=== PATIENT | female | born 1985 | race Caucasian/White ===

== ENCOUNTER 2018-02-08 10:02 | Inpatient (IN) | payer MEDICAID, OTHER, SELFPAY ==
[2018-02-08] MEDS ORDERED: Promethazine HCl 25 MG/ML VIAL IM PRN ×2 (10:45→13:50)
[2018-02-08] MEDS ORDERED: Bicitra 30 ML UDCUP PO SCH (10:45)
[2018-02-08] MEDS ORDERED: Ondansetron HCl/PF 4 MG/2 ML Vial IVP PRN ×3 (10:45→13:50)
[2018-02-08] MEDS ORDERED: Gentamicin 80 MG/2 ML VIAL IVPB SCH (10:45)
[2018-02-08] MEDS: Lactated Ringer's 1,000 ML IV SCH ×2 (10:45→18:41)
[2018-02-08] MEDS ORDERED: Acetaminophen 500 MG TAB PO PRN (10:45)
[2018-02-08] MEDS ORDERED: Clindamycin/D5W 900 MG in Premix Bag 1 BAG IVPB SCH (10:45)
[2018-02-08 11:07] LABS: Hemoglobin 11.3 g/dL (12.0-16.0); Mean Corpuscular HGB CONC 33.4 g/dL (32.0-36.0); Mean Corpuscular Hemoglobin 29.2 pg (27.0-31.0); Mean Corpuscular Volume 87.5 fL (78.0-98.0); Mean Platelet Volume 9.3 fL (7.4-10.4); Platelet Count 165 thou/uL (130-400); RBC Distribution Width 12.5 % (11.5-14.5); Red Blood Cell (RBC) Count 3.86 mill/uL (4.20-5.40); White Blood Cell (WBC) Count 7.3 thou/uL (4.8-10.8)
[2018-02-08] MEDS ORDERED: Gentamicin Sulfate 120 MG in Premix Bag 1 BAG IVPB SCH (11:15)
--- NOTE | 2018-02-08 11:21 | PDOC.FPROB ---
Addendum entered and electronically signed by Clara Rodriguez DO 02/08/18 12:40: Correction: Patient is 38w6d by 1T US with ZAINAB 02/16/18. Original Note: FMR OB H&P: HPI - History of Present Illness Chief Complaint: brianna csection History of Present Illness: Patient is a at 39w6d by 1T US presents to L&D for scheduled delivery for repeat section. Today she reports good FM, no LOF, no VB, and no vaginal discharge. Primary Care Physician: Dr. Vj Wells FMR OB H&P: Current - Care : 5 Para: 3 Gestational age: 39w6d Due date: 02/09/18 - OB Labs Blood type: O RH: positive Antibody Screen: negative HIV: negative RPR: negative HepBsAg: negative Rubella: immune 1 hour gtt: 131 - First Trimester Ultrasound First trimester: within normal limits. - Anatomy Survey Anatomy survey: within normal limits. FMR OB H&P: History - Past Medical History PMH: none - OB History OB History: csection x3 - Surgical History Sx History: csection x3 FMR OB H&P: Medications - Current Home Medications: Medication Instructions Recorded Confirmed Type Hji150/Iron Fum/Folic 1 tablet PO DAILY 01/25/16 02/08/18 History [ Tablet] Allergies/Adverse Reactions: Allergies Allergy/AdvReac Type Severity Reaction Status Date / Time penicillin G Allergy Verified 01/25/16 06:27 FMR OB H&P: ROS - Review of Systems General: denies: fever/chills ENT: denies: nasal congestion, rhinorrhea Cardiovascular: denies: chest pain, edema Gastrointestinal: denies: abdominal pain, nausea, vomiting Genitourinary (Female): denies: vaginal discharge, vaginal pain, vaginal bleeding, contractions FMR OB H&P: Vital Signs - Maternal Vital signs: Vital Signs - First Documented Temp Pulse Resp BP 98.2 F 80 18 88/48 L 02/08/18 10:37 02/08/18 10:37 02/08/18 10:37 02/08/18 10:37 - Heart Tones Category: category 1 FMR OB H&P: Physical Exam - Physical Exam General: NAD HEENT: normocephalic and atraumatic Heart: RRR General: CTAB Abdomen: gravid, non-tender Deviation from normal: malpresentation on leopolds exam Musculoskeletal: normal gait and station, pulses present, FROM in all four extremities Psychiatric: normal mood and affect - Pelvic Exam Estimated Weight: 7 lbs FMR OB H&P: Results - Labs Lab results: Laboratory Results - last 24 hr 02/08/18 10:45 WBC 7.3 RBC 3.86 L Hgb 11.3 L Hct 33.7 L MCV 87.5 MCH 29.2 MCHC 33.4 RDW 12.5 Plt Count 165 MPV 9.3 - Imaging Imaging: Bedside u/s confirms oblique presentation with head in RUQ and OA position with anterior fundal placental location. FMR OB H&P: A/P - Problem List (1) delivery indicated due to breech presentation Current Visit: Yes Status: Acute Code(s): O32.1XX0 - MATERNAL CARE FOR BREECH PRESENTATION, UNSP Comment: 32 yo @ 38.6 wk delivered via rLTCS indicated for breech presentation. VSS Pain is contorlled. encourage ambulation and PO intake. expectant management at this time. will remove CORDELIA drain tomorrow. Fernanda d/c on Sunday. Assessment and Plan: Patient is at 39.6 by 1T US presents for repeat csection and malpresentation. sIUP: IOL reviewed and wnl. Hx Csx x3: last delivery with vaccuum extraction 2/2 scar formation. Malpresentation: on bedside u/s. Prepare for breech delivery. Admit to L&D for csx. Will give ppx abx prior to surgery. Plan for routine delivery and PP care. Discussion: Date/Time: 02/08/18 1119 This H&P was discussed with [] and [] who agree with the above documentation and plan. Attending Addendum - Attending Addendum Date/Time: 02/09/18 1050 I personally evaluated the patient and discussed the management with Dr. Rodriguez. I agree with the History, Examination, Assessment and Plan documented above with any addition or exceptions noted below. 32 y.o. at 38.6 weeks EGA by 7wk US with breech presentation for scheduled repeat US for repeat, thin lower uterine segment, history of dense intraabdominal adhesions, and malpresentation. FHT's reactive, no contractions.
[2018-02-08 11:46] LABS: Hep B Surf Ag Non-Reactive S/CO (NonReactive)
[2018-02-08 11:48] LABS: Syphilis Antibody Nonreactive (Nonreactive); Syphilis Antibody Index 0.05 S/CO (<1.00 Non-Reactive)
[2018-02-08] MEDS ORDERED: Morphine PF 1 MG/ML SYR ONE (12:03)
[2018-02-08] MEDS ORDERED: PHENYLEPHRINE-NS 100 MCG/ML 10 ML SYRINGE ONE ×3 (12:04→15:17)
[2018-02-08] MEDS ORDERED: Oxytocin 10 UNITS/ML VIAL ONE (12:04)
[2018-02-08] MEDS ORDERED: Ketorolac Tromethamine 30 MG/ML VIAL ONE ×2 (12:04→15:17)
[2018-02-08] MEDS ORDERED: Glycopyrrolate 0.2 MG/ML 5 ML SYRINGE ONE ×2 (12:04→15:17)
[2018-02-08] MEDS ORDERED: Ondansetron HCl/PF 4 MG/2 ML Vial ONE ×2 (12:04→15:17)
[2018-02-08] MEDS ORDERED: Bupivacaine 0.75% W/DEXTROSE 8.25% 2 ML AMP ONE (12:09)
[2018-02-08] MEDS ORDERED: Lidocaine 1% PF 5 ML VIAL ONE (12:09)
[2018-02-08] MEDS ORDERED: Promethazine HCl 25 MG SUPP PR PRN (13:50)
[2018-02-08] MEDS ORDERED: Naloxone HCl 0.4 mg/ml Vial IV PRN (13:50)
[2018-02-08] MEDS ORDERED: HYDROmorphone 2 MG/ML VIAL SLOW IVP PRN (13:50)
[2018-02-08] MEDS ORDERED: diphenhydrAMINE 50 MG/ML VIAL IVP PRN (13:50)
[2018-02-08] MEDS ORDERED: Naloxone HCl 0.4 mg/ml Vial IVP PRN ×2 (13:50)
[2018-02-08] MEDS ORDERED: Meperidine HCl/PF 25 MG/ML VIAL SLOW IVP PRN (13:50)
[2018-02-08] MEDS ORDERED: Eucerin (Mineral Oil/Petrolatum,White) 30 gm Jar TOP PRN (13:50)
[2018-02-08] MEDS ORDERED: Ketorolac Tromethamine 30 MG/ML VIAL IVP SCH (14:00)
[2018-02-08] MEDS ORDERED: Communication Order-Pharmacy FS SCH (14:00)
--- NOTE | 2018-02-08 15:08 | OP-2 ---
DATE OF PROCEDURE: 02/08/2018 RESIDENT SURGEON: Moreno Stoddard M.D. STORE PROTECTION SPECIALIST SURGEON: Adebayo White D.O. ATTENDING SURGEON: Vj Wells M.D. PROCEDURE: Repeat low transverse section. ANESTHESIA: Spinal. PREOPERATIVE DIAGNOSES: 1. Term intrauterine . 2. Breech presentation. 3. History of section x3 with known extensive scarring and adhesions on previous . POSTOPERATIVE DIAGNOSES: 1. Term intrauterine . 2. Breech presentation. 3. History of section x3 with known extensive scarring and adhesions on previous . INDICATIONS: Ms. Briggs is a 32-year-old G5, P3-0-1-3 at 38.6 weeks gestation who presented for repeat scheduled section due to prior section x3 and malpresentation. PROCEDURE IN DETAIL: The patient provided consent after risks, benefits and alternatives were discussed. She received clindamycin 900 mg x1 dose and gentamicin 120 mg x1 dose for preoperative antibiotics. The patient was taken into the operating room and spinal anesthesia was initiated. She was placed in the supine position with left lateral tilt and prepped and draped in the usual sterile fashion. Skin incision was made with a scalpel and was carried down sharply and bluntly to the level of the fascia, which was sharply nicked. Extensive scarring between the subcutaneous fat and fascia was noted at this time. The scar tissue was dissected through and released. The fascial incision was then extended superior laterally using Rodriguez scissors. The superior and inferior edges of the fascia were elevated with Gunjan clamps and bluntly and sharply dissected free. The rectus muscles were divided digitally and retracted manually. There was marked scarring between the rectus muscles that was inspected and found to be free of bowel or bladder and sharply dissected using Rodriguez scissors. The bladder was identified along the inferior edge and the overlying scar tissue was dissected away. The opening into the abdominal cavity was then retracted manually. Vu O retractor was placed. Lower uterine segment was identified and noted to have several adhesions along the bladder. The bladder was back filled with methylene blue to ensure no bladder injury occurred. A bladder flap was created along the lower uterus to release adhesions. During creation of bladder flap, an uterine window was identified. This was entered digitally. Hysterotomy was created through the uterine window and retracted manually in the caudal cranial fashion. Rupture of membranes revealed clear fluid. The was noted to be in the breech position and the feet were easily delivered through the hysterotomy. Gentle traction was used to deliver the to the level of the shoulders, both of which were swept in the anterior to posterior fashion. The neck was flexed and the head was easily delivered with fundal pressure. Delayed cord clamping was utilized. The cord was then cut and clamped and the infant was sent to the awaiting nursery team. The placenta was then extracted manually and the uterus was curetted with dry lap sponge. Ring forceps were used to identify the apices and the lower edge of the hysterotomy, which was then closed using an 0 Monocryl in the running locking fashion. Hysterotomy was then inspected and noted to be hemostatic. There were several small oozing vessels along the bladder flap and uterine serosa, which were controlled with Bovie cautery. A piece of Surgicel was placed within the bladder flap to further promote hemostasis. The rectus peritoneum was inspected and noted to have a few small bleeding vessels, which were cauterized with Bovie cautery. Rectus muscles were inspected and bleeding was stopped again with Bovie cautery. Fascia was closed using 0 PDS in the running nonlocking fashion. The subcutaneous layer was irrigated with sterile saline and a CORDELIA drain was placed in the subcutaneous layer and allowed to drain with gravity. Three simple interrupted 2-0 chromic sutures were used to reapproximate the subcutaneous layer and the skin was reapproximated with karin. The patient tolerated the procedure well. Counts were correct x3. The patient went to recovery in stable condition. QUANTITATIVE BLOOD LOSS: 790 mL COMPLICATIONS: None. SPECIMENS: Cord blood sent to lab for type and screen. FINDINGS: Grossly normal female infant born at 1300 hours with Apgars of 8 and 9 at 1 and 5 minutes respectively. Grossly normal placenta with 3-vessel cord noted and discarded. DRAINS: Causey catheter with blue colored urine due to methylene blue. Prior to the administration of methylene blue, there was no blood noted in the urine. Additionally, no methylene blue was found leaking into the abdominal cavity. There is also a CORDELIA drain left in the subcutaneous layer draining to gravity. [facility]
[2018-02-08] MEDS ORDERED: Misoprostol 200 MCG TAB PR PRN (16:46)
[2018-02-08] MEDS ORDERED: Methylergonovine 0.2 MG/ML VIAL IM PRN (16:46)
[2018-02-08] MEDS ORDERED: Adacel (T-DAP) 0.5 ML VIAL IM ONE (16:46)
[2018-02-08] MEDS ORDERED: Lanolin Ointment 7 GM TUBE TOP PRN (16:46)
[2018-02-08] MEDS: Ketorolac Tromethamine 30 MG/ML VIAL IVP PRN (20:50)
[2018-02-08] MEDS: Docusate Calcium (SURFAK) 240 MG CAP PO SCH (21:04)
[2018-02-09] MEDS ORDERED: HYDROcodone/Acetaminophen 5/325 mg Tablet PO PRN (02:00)
[2018-02-09] MEDS: Ketorolac Tromethamine 30 MG/ML VIAL IVP PRN (05:26)
[2018-02-09] MEDS: Lactated Ringer's 1,000 ML IV SCH (05:26)
[2018-02-09 06:06] LABS: Hemoglobin 10.1 g/dL (12.0-16.0); Mean Corpuscular HGB CONC 34.9 g/dL (32.0-36.0); Mean Corpuscular Hemoglobin 30.6 pg (27.0-31.0); Mean Corpuscular Volume 87.8 fL (78.0-98.0); Mean Platelet Volume 8.9 fL (7.4-10.4); Platelet Count 138 thou/uL (130-400); RBC Distribution Width 12.3 % (11.5-14.5); Red Blood Cell (RBC) Count 3.29 mill/uL (4.20-5.40); White Blood Cell (WBC) Count 8.3 thou/uL (4.8-10.8)
--- NOTE | 2018-02-09 07:57 | PDOC.PP ---
Post Progress Note Post Day #: 1 Subjective: Pain controlled. No concerns. asked about completing CHIP paperwork for baby. PO intake tolerated: yes Flatus: yes Ambulation: no Vital Signs (12 hours) Temp Pulse Resp BP Pulse Ox 02/09/18 04:50 97.8 F 57 L 16 02/09/18 00:25 98.2 F 62 16 93/48 L 02/08/18 20:30 98.7 F 66 17 96/46 L 97 02/08/18 20:25 98.7 F 65 17 Weight Weight 80.004 kg - Physical Examination General: NAD Cardiovascular: no m/r/g, RRR Respiratory: clear to auscultation bilaterally, non-labored breathing Abdominal: + bowel sounds, lochia, no distention, appropriately TTP Fundus firm & at: 2 cm below umbilicus Extremities: negative homans (B) Skin: CS incision dry & intact (minimal drainaged from CORDELIA) Neurological: no gross focal deficits Psychiatric: A&Ox3, normal affect Result Diagrams: 02/09/18 05:46 Additional Labs: Post Labs Blood Type O POSITIVE 02/08/18 10:45 Hep Bs Antigen Non-Reactive S/CO (NonReactive) 02/08/18 10:45 (1) delivery indicated due to breech presentation Code(s): O32.1XX0 - MATERNAL CARE FOR BREECH PRESENTATION, UNSP Status: Acute Comment: 32 yo @ 38.6 wk delivered via rLTCS indicated for breech presentation. VSS Pain is contorlled. encourage ambulation and PO intake. expectant management at this time. will remove CORDELIA drain tomorrow. Fernanda d/c on Sunday. <Moreno Stoddard - Last Filed: 02/09/18 07:54> Vital Signs (12 hours) Temp Pulse Resp BP Pulse Ox 02/09/18 09:00 97.9 F 50 L 20 99/49 L 96 02/09/18 04:50 97.8 F 57 L 16 02/09/18 00:25 98.2 F 62 16 93/48 L Weight Weight 80.004 kg Result Diagrams: 02/09/18 05:46 Additional Labs: Post Labs Blood Type O POSITIVE 02/08/18 10:45 Hep Bs Antigen Non-Reactive S/CO (NonReactive) 02/08/18 10:45 (1) delivery indicated due to breech presentation Code(s): O32.1XX0 - MATERNAL CARE FOR BREECH PRESENTATION, UNSP Status: Acute Comment: 32 yo @ 38.6 wk delivered via rLTCS indicated for breech presentation. VSS Pain is contorlled. encourage ambulation and PO intake. expectant management at this time. will remove CORDELIA drain tomorrow. Fernanda d/c on Sunday. <Vj Wells - Last Filed: 02/09/18 10:56> Attending Addendum - Attending Addendum Date/Time: 02/09/18 7247 I personally evaluated the patient and discussed the management with Dr. Stoddard. I agree with the History, Examination, Assessment and Plan documented above with any addition or exceptions noted below. Pain controlled. Vitals normal. Afeb. Incision C/D/I. Drain with minimal serosanguinous drainage. If remains minimal after ambulation, can be pulled this afternoon. <Vj Wells - Last Filed: 02/09/18 10:56>
[2018-02-09] MEDS: HYDROcodone/Acetaminophen 5/325 mg Tablet PO PRN ×3 (09:17→19:42)
[2018-02-09] MEDS: Prenatal Vitamin 1 TAB PO SCH (09:18)
[2018-02-09] MEDS: Docusate Calcium (SURFAK) 240 MG CAP PO SCH ×2 (09:18→19:42)
[2018-02-09] MEDS ORDERED: Simethicone Chewable 80 MG TAB PO PRN (19:27)
[2018-02-09] MEDS: Ibuprofen 800 MG TAB PO SCH (22:06)
[2018-02-10] MEDS: Ibuprofen 800 MG TAB PO SCH ×2 (06:22→13:42)
--- NOTE | 2018-02-10 07:30 | PDOC.PP ---
Post Progress Note Post Day #: 2 Subjective: complains of abdominal distention. No other concerns. would like to go home. PO intake tolerated: yes Flatus: yes Ambulation: yes Vital Signs (12 hours) Temp Pulse Resp BP 02/10/18 04:20 97.8 F 78 18 02/10/18 00:05 97.8 F 78 18 02/09/18 19:50 97.8 F 78 18 104/58 L Weight Weight 80.004 kg - Physical Examination General: NAD Cardiovascular: no m/r/g, RRR Respiratory: clear to auscultation bilaterally, non-labored breathing Abdominal: + bowel sounds, lochia, no distention, appropriately TTP Fundus firm & at: 2 cm above pubic symphysis Extremities: negative homans (B) Skin: CS incision dry & intact, no rash Neurological: no gross focal deficits Psychiatric: A&Ox3, normal affect Result Diagrams: 02/09/18 05:46 Additional Labs: Post Labs Blood Type O POSITIVE 02/08/18 10:45 Hep Bs Antigen Non-Reactive S/CO (NonReactive) 02/08/18 10:45 (1) delivery indicated due to breech presentation Code(s): O32.1XX0 - MATERNAL CARE FOR BREECH PRESENTATION, UNSP Status: Acute Comment: 32 yo @ 38.6 wk delivered via rLTCS indicated for breech presentation. VSS Pain is contorlled. encourage ambulation and PO intake. expectant management at this time. will remove CORDELIA drain tomorrow. Dispo pending needs for baby.
[2018-02-10] MEDS: Docusate Calcium (SURFAK) 240 MG CAP PO SCH (09:19)
[2018-02-10] MEDS: Prenatal Vitamin 1 TAB PO SCH (09:19)
[2018-02-10] MEDS ORDERED: Bisacodyl 5 MG TAB PO SCH (11:00)
[2018-02-10] MEDS: HYDROcodone/Acetaminophen 5/325 mg Tablet PO PRN (11:32)
[2018-02-10 11:43] VITALS: BP 88/49; TEMP 98
== END 2018-02-10 16:45 | disposition home or self-care (01) | DRG 766 ==
LOC: L&D 10:02 → L&D-LIB 10:34 → L&D 12:30 → 3SE 16:48
PROVIDERS: ADMIT Family Medicine; ATTEND Family Medicine
PROC: 10D00Z1 Extraction of Products of Conception, Low, Open Approach (ICD-10-PCS; principal; 2018-02-08)
DX: O32.1XX0 Maternal care for breech presentation, not applicable or unspecified (principal); Z3A.39 39 weeks gestation of pregnancy; Z37.0 Single live birth; O34.219 Maternal care for unspecified type scar from previous cesarean delivery
CPT/HCPCS: 36415; 51702; 76815; 85027; 86780; 86850; 86900; 86901; 87340; J1580; J1885; J2001; J2274; J2405; J2590; J3490; Q9968